=== PATIENT | male | born 1995 | race Two or more races ===

== ENCOUNTER 2021-04-29 23:56 | Emergency (ER) | payer MEDICAID ==
[~2021-04-29] VITALS: Ht 172.7 cm; Wt 109.0 kg
[2021-04-30] MEDS ORDERED: LEVETIRACETAM 500MG PREMIX 100 ML IV ONE (02:30)
[2021-04-30 02:54] VITALS: BP 129/75
[2021-04-30 02:54] LABS: CHLORIDE 108 mEq/L (98-107)
[2021-04-30 03:06] LABS: BASOPHILS % 0.4 % (0.0-2.0); EOSINOPHILS % 1.1 % (0.0-5.0); HEMOGLOBIN. 14.6 g/dL (14.0-18.0); LYMPHOCYTES % 19.9 % (20.0-50.0); MEAN CORPUSCULAR HEMOGLOBIN 28.6 pg (28.0-32.0); MEAN CORPUSCULAR VOLUME 84.6 fL (80.0-94.0); MEAN PLATELET VOLUME 9.2 fl (7.4-10.4); MONOCYTES % 8.8 % (2.0-8.0); NEUTROPHILS % 69.8 % (40.0-76.0); PLATELET 214 x1000/uL (130-400); RED BLOOD CELL COUNT 5.08 mill/uL (4.7-6.1); RED CELL DISTRIBUTION WIDTH 14.3 % (11.6-14.6)
[2021-04-30] MEDS ORDERED: KEPP500 MT (04:52)
== END 2021-04-30 05:05 | disposition home or self-care (01) ==
LOC: ER 23:56
DX: R56.9 Unspecified convulsions (principal)
CPT/HCPCS: 36415; 70450; 80053; 85025; 96365; 99284; J1953

== ENCOUNTER 2021-06-17 14:55 | Emergency (ER) | payer MEDICAID ==
[~2021-06-17] VITALS: Ht 172.7 cm; Wt 104.0 kg
[~2021-06-17 14:55] MED LIST: KEPP500 MT
[2021-06-17 14:57] VITALS: BP 122/62
[2021-06-17] MEDS ORDERED: DOXY100C5 MT (16:27)
[2021-06-17] MEDS ORDERED: DOXYCYCLINE HYCLATE 100MG CAPSULE PO ONE (16:30)
[2021-06-18] MEDS ORDERED: DOXY100C5 MT (14:10)
== END 2021-06-17 17:03 | disposition home or self-care (01) ==
LOC: ER 14:55
DX: L03.115 Cellulitis of right lower limb (principal); Z87.891 Personal history of nicotine dependence
CPT/HCPCS: 99283